=== PATIENT | female | born 1975 | race Caucasian/White ===

== ENCOUNTER 2017-08-10 10:20 | Emergency (ER) | payer SELFPAY ==
[~2017-08-10] VITALS: Ht 167.6 cm; Wt 67.6 kg
[2017-08-10 12:54] VITALS: BP 98/51
== END 2017-08-10 12:55 | disposition home or self-care (01) ==
LOC: ED 10:20
DX: M54.5 Low back pain (principal)
CPT/HCPCS: J1885

== ENCOUNTER 2019-03-12 14:45 | Emergency (ER) | payer MEDICAID ==
[~2019-03-12] VITALS: Ht 162.6 cm; Wt 63.0 kg
[2019-03-12 14:58] VITALS: Ht 162.6 cm; Wt 63.0 kg
[2019-03-12 15:26] VITALS: BP 155/71
== END 2019-03-12 15:26 | disposition home or self-care (01) ==
LOC: ED 14:45
DX: S81.852A Open bite, left lower leg, initial encounter (principal); W54.0XXA Bitten by dog, initial encounter; Y93.89 Activity, other specified; Y92.89 Other specified places as the place of occurrence of the external cause; Y99.8 Other external cause status
CPT/HCPCS: 90715